=== PATIENT | female | born 1955 | race Hispanic/Latino ===

== ENCOUNTER 2017-02-19 10:37 | Day surgery (SDC) | payer MEDICARE, OTHER ==
[2016-03-13 07:51] VITALS: BMI 22.4
[2017-02-19] MEDS ORDERED: Propofol 10 mg/ml Inj (20 ML) ONE (11:57)
[2017-02-19] MEDS ORDERED: Sodium Chloride 0.9% 1,000 ML IV SCH (12:45)
[2017-02-19 13:48] VITALS: BP 141/80; PULSE 61; RESP 16; TEMP 97.7; O2SAT 98
== END 2017-02-19 14:51 | disposition home or self-care (01) ==
LOC: ENDO 10:37
PROVIDERS: ATTEND Internal Medicine Gastroenterology
DX: K29.50 Unspecified chronic gastritis without bleeding (principal); Z98.0 Intestinal bypass and anastomosis status; J44.9 Chronic obstructive pulmonary disease, unspecified
CPT/HCPCS: 43239; 88305; 88312; 88342; J2001; J2704; J3010; J7040 ×2